=== PATIENT | female | born 1960 | race Caucasian/White ===

== ENCOUNTER 2017-02-27 22:13 | Emergency (ER) | payer MEDICAID, OTHER ==
[~2017-02-27] VITALS: Ht 160 cm; Wt 103.4 kg
[~2017-02-27 22:13] MED LIST: ASPI81TA31 PO; GLIM4TAB3 PO; LISI10TA5 PO; LOVA40TA2 PO; METF500T4 PO; PIOG15TA3 PO; RANI150T12 PO
[2017-02-27] MEDS ORDERED: HYDROCODONE/APAP 5-325MG TABLET PO ONE (23:30)
[2017-02-27] MEDS ORDERED: HYDROCODONE/APAP 5-325MG TABLET ONE (23:37)
--- NOTE | 2017-02-28 00:44 | NUR ---
Patient discharged to home in stable conditon. Written and verbal after care instructions given. Patient verbalizes understanding of instructions.
== END 2017-02-28 00:45 | disposition home or self-care (01) ==
LOC: ER 22:15
DX: R51 Headache (principal); E11.9 Type 2 diabetes mellitus without complications; I10 Essential (primary) hypertension; E78.5 Hyperlipidemia, unspecified; Z88.0 Allergy status to penicillin; Z79.82 Long term (current) use of aspirin; Z90.49 Acquired absence of other specified parts of digestive tract
CPT/HCPCS: 70450; A4663

== ENCOUNTER 2018-09-06 10:46 | Emergency (ER) | payer OTHER ==
[~2018-09-06] VITALS: Ht 160 cm; Wt 102.1 kg
[~2018-09-06 10:46] MED LIST changes: +METF-440 PO; -METF500T4 PO; -PIOG15TA3 PO; +PIOG15TA8 PO; -RANI150T12 PO; +RANI150T43 PO
[2018-09-06] MEDS ORDERED: ONDANSETRON 4 MG/2 ML VIAL IV ONE (11:00)
[2018-09-06] MEDS ORDERED: MORPHINE SULFATE 2 MG/1 ML DISP.SYRIN IV ONE (11:00)
[2018-09-06 11:07] LABS: *BILIRUBIN,URIN NEGATIVE (NEGATIVE); *BLOOD, URINE NEGATIVE (NEGATIVE); *CLARITY,URINE SLIGHTLY CLOUDY (CLEAR); *COLOR,URINE YELLOW (YELLOW); *KETONES,URINE 1+ (NEGATIVE); *PROTEIN,URINE TRACE (NEGATIVE); *UROBILINOGEN,URINE 0.2 E.U./dl (NORMAL); LEUKOCYTE ESTERASE ,URINE 1+ (NEGATIVE); NITRITE, URINE NEGATIVE (NEGATIVE); PH,URINE 5.5 (5.0-8.0); UGLUCOSE NEGATIVE (NEGATIVE)
[2018-09-06] MEDS ORDERED: OMEP20TA20 PO (11:09)
[2018-09-06] MEDS ORDERED: ATOR80TA PO (11:09)
[2018-09-06 11:11] LABS: BACTERIA,URINE FEW /HPF (NONE SEEN); WBC,URINE 80-100 /HPF (0-3)
[2018-09-06 11:12] LABS: SQUAMOUS EPITHELIAL CELL,UR FEW /HPF (NONE SEEN)
[2018-09-06] MEDS ORDERED: ONDANSETRON 4 MG/2 ML VIAL ONE (11:16)
[2018-09-06] MEDS ORDERED: MORPHINE SULFATE 4 MG/1 ML DISP.SYRIN ONE (11:16)
--- NOTE | 2018-09-06 11:16 | NUR ---
PT IS IN ROOM #1B. DR OLIVER EVALUATED THE PT.
[2018-09-06 11:19] LABS: BASOPHILS # (AUTO) 0.1 K/uL (0.0-8.0); BASOPHILS % (AUTO) 0.6 % (0.0-2.0); EOSINOPHILS # (AUTO) 0.1 K/uL (0.0-0.7); EOSINOPHILS % (AUTO) 1.4 % (0.0-7.0); HEMATOCRIT 38.1 % (31.2-41.9); HEMOGLOBIN 12.9 g/dL (10.9-14.3); LYMPHOCYTES % (AUTO) 20.4 % (20.5-51.5); MEAN CORPUSCULAR HGB CONC 34 g/dL (32.3-35.6); MEAN CORPUSCULAR VOLUME 91.5 fL (75.5-95.3); MONOCYTES # (AUTO) 0.6 K/uL (2.0-10.0); MONOCYTES % (AUTO) 5.7 % (0.0-11.0); NEUTROPHILS # (AUTO) 7.1 K/uL (1.8-8.9); NEUTROPHILS % (AUTO) 71.9 % (38.5-71.5); PLATELET COUNT (AUTO) 322 K/uL (179-408); RED BLOOD CELL COUNT(AUTO) 4.17 MIL/uL (3.63-4.92); WHITE BLOOD COUNT (AUTO) 9.8 K/uL (3.8-11.8)
[2018-09-06 11:32] LABS: BILIRUBIN,DIRECT 0.2 mg/dL (0.0-0.2); BILIRUBIN,TOTAL 1.1 mg/dL (0.2-1.0); CREATININE 0.9 mg/dL (0.6-1.3); POTASSIUM 4.5 mmol/L (3.5-5.1); TOTAL PROTEIN, SERUM 7.7 g/dL (6.4-8.2)
--- NOTE | 2018-09-06 12:10 | NUR ---
IV removed. Catheter intact and site benign. Pressure and 4x4 gauze applied to site. No bleeding noted.
[2018-09-06] MEDS ORDERED: CIPROFLOXACIN HCL 250 MG TABLET ONE (12:11)
[2018-09-06] MEDS ORDERED: METRONIDAZOLE 500 MG TABLET ONE (12:11)
--- NOTE | 2018-09-06 12:12 | NUR ---
Patient discharged to home in stable conditon with daughter. Written and verbal after care instructions given. Patient and daughter verbalizes understanding of instructions.
[2018-09-06] MEDS ORDERED: METRONIDAZOLE 500 MG TABLET PO ONE (12:15)
[2018-09-06] MEDS ORDERED: CIPROFLOXACIN HCL 250 MG TABLET PO ONE (12:15)
== END 2018-09-06 12:13 | disposition home or self-care (01) ==
LOC: ER 10:46
DX: K57.92 Diverticulitis of intestine, part unspecified, without perforation or abscess without bleeding (principal); I10 Essential (primary) hypertension; E78.5 Hyperlipidemia, unspecified; E11.9 Type 2 diabetes mellitus without complications; Z90.49 Acquired absence of other specified parts of digestive tract; Z88.0 Allergy status to penicillin
CPT/HCPCS: 36415; 74176; 80048; 80076; 81001; 83690; 85025; 87077; 87086; 87186 ×2; 96374; 96375; 99284; J2270; J2405; A4663